=== PATIENT | male | born 1955 | race Caucasian/White ===

== ENCOUNTER → 2021-01-02 | Outpatient (CLI) | payer OTHER ==
[~2021-01-02] MED LIST: IOHEXOL 240 MG/ML 50ML VIAL. ONE; IOHEXOL 240 MG/ML 50ML VIAL. PO ONE; IOHEXOL 300 MG/ML 75 ML VIAL. IV ONE
--- NOTE | 2021-01-02 16:54 | RAD ---
EXAM: CT Abdomen without IV contrast CLINICAL HISTORY: Ventral abdominal hernia COMPARISON: None. TECHNIQUE: Helical CT of the abdomen was performed without intravenous contrast. Axial, coronal and s agittal reformatted images were generated. ---PQRS compliance statement - One or more of the following individualized dose reduction techniques were utilized for this study: 1. Automated exposure control 2. Adjustment of the mA and/or kV according to patient size 3. Use of iterative reconstruction technique--- FINDINGS: Lack of intravenous contrast limits evaluation of solid organs, vasculature, and lymph nodes. Lung bases: Patchy opacity lingula likely atelectasis or scarring. Abdomen: No focal liver lesion. Gallbladder is normal. No biliary duct dilatation. Pancreas is unremarkable. S pleen is normal in appearance. Adrenal glands are unremarkable. No focal renal lesion. No hydronephro sis. No hydroureter. Appendix is normal. Moderate to large volume colonic stool content is seen. No small or large bowel d ilatation. Large ventral abdominal hernia is seen the base measures approximately 12.5 cm in transver se dimension. No associated fatty inflammatory change or fluid collection. No mesenteric engorgement. No abdominal lymphadenopathy. No abdominal ascites. Atherosclerotic calcifications of the aorta are seen. Bones: Bilateral L5 pars defects are seen. 1 cm anterolisthesis of L5 on S1. Multilevel degenerative changes are seen. IMPRESSION: 1. Large ventral abdominal hernia is seen with the base measuring 12.5 cm in transverse dimension. N o associated fatty inflammatory change or fluid collection. 2. Bilateral L5 pars defects with 1 cm anterolisthesis of L5 on S1. 3. Moderate to large volume colonic stool content can be correlated for possible constipation. Electronically signed by: Kemar Chairez MD (01/02/2021 4:52 PM) [id number]
== END ==
LOC: CT 08:53
PROVIDERS: ATTEND Preventive Medicine Occupational Medicine
DX: K43.9 Ventral hernia without obstruction or gangrene (principal); K46.9 Unspecified abdominal hernia without obstruction or gangrene
CPT/HCPCS: 74150; Q9966